=== PATIENT | female | born 1970 | race Caucasian/White ===

== ENCOUNTER → 2018-11-16 | Outpatient (CLI) | payer BC ==
--- NOTE | 2018-11-16 12:13 | KCIC ---
Bilateral digital screening mammograms: Reason for examination: Routine screening. Comparison is made to previous study dated 03/13/2016. Interpretation was made with the benefit of CAD. The skin and nipples show no abnormalities. No abnormal axillary lymph nodes are seen. The breast parenchyma is heterogeneously dense. (Breast density: Category C.) There is some nodularity to the parenchyma posterior laterally in both breasts. This can be further evaluated with ultrasound. There are no suspicious calcifications or architectural distortion. Impression: Nodularity posterior laterally in both breasts. Recommend further evaluation with ultrasound. Your patient's mammogram demonstrates that she has dense breast tissue (breast density category C or D), which could hide abnormalities, and if she has other risk factors for breast cancer that have been identified, she might benefit from supplemental screening tests that may be suggested by you as her ordering physician. Dense breast tissue, in and of itself, is a relatively common condition. Therefore, this information is not provided to cause undue concern, but rather to raise your awareness and to promote discussion with your patient regarding the presence of other risk factors, in addition to dense breast tissue. Your patient's mammography results will be sent to her. BI-RAD Category 0: Incomplete. Needs additional imaging evaluation. "Our facility is accredited by the [employer] Mammography [employer]." This patient's information has been entered into a reminder system for the patient to be notified with the results of her examination and a target date for the next mammogram. Electronically signed by: Arpita Enrique MD (11/16/2018 12:10 PM) [id number]
== END | disposition home or self-care (01) ==
LOC: KCIC MAMMO 10:38
PROVIDERS: ATTEND Internal Medicine
DX: Z12.31 Encounter for screening mammogram for malignant neoplasm of breast (principal)
CPT/HCPCS: 77067

== ENCOUNTER → 2018-11-30 | Outpatient (CLI) | payer BC ==
--- NOTE | 2018-11-30 14:08 | KCIC ---
Bilateral breast ultrasound: Reason for examination: Nodularity bilaterally on screening mammogram. Comparison is made to mammographic exam dated 11/16/2018. Ultrasound examination was performed bilaterally with attention to the lateral breasts and the axilla. In the right breast, there is focal dense fibroglandular tissue at the 10:00 position. There are no discrete cystic or solid nodules or architectural distortions. No abnormal appearing lymph nodes are seen in the right axilla. In the left breast, there is focal dense fibroglandular tissue posterior laterally. There is also a small hypoechoic nodule at the 1:00 position 3 cm from the nipple which is well-circumscribed and it parallel orientation and measures 6.3 mm in greatest dimension. This likely represents a small fibroadenoma. There is also a small hypoechoic lesion 3 mm in greatest dimension at the 5:00 position 3 cm from the nipple which probably represents a small focus of fibrocystic change. No suspicious lesions are seen. No abnormal appearing lymph nodes are seen in the left axilla. IMPRESSION: Dense fibroglandular tissue in the breasts bilaterally corresponds to the areas of mammographic concern. 6.3 mm circumscribed nodule probably representing a fibroadenoma at the 1:00 position of the left breast and a small 3 mm fibrocystic type lesion at the 5:00 position of the left breast. Recommend 6 month follow-up ultrasound of the left breast. BI-RADS Category 3: Probably Benign. "Our facility is accredited by the [employer] Mammography [employer]." This patient's information has been entered into a reminder system for the patient to be notified with the results of her examination and a target date for the next mammogram. Electronically signed by: Arpita Enrique MD (11/30/2018 2:05 PM) [facility]
== END | disposition home or self-care (01) ==
LOC: KCIC US 13:17
PROVIDERS: ATTEND Internal Medicine
DX: N64.89 Other specified disorders of breast (principal); N63.21 Unspecified lump in the left breast, upper outer quadrant; N63.22 Unspecified lump in the left breast, upper inner quadrant
CPT/HCPCS: 76641

== ENCOUNTER → 2019-07-09 | Outpatient (CLI) | payer BC ==
--- NOTE | 2019-07-09 10:00 | KCIC ---
Left breast ultrasound: Reason for examination: Follow-up nodules. Comparison is made to previous study dated 11/30/2018. Left whole breast ultrasound including evaluation of all 4 quadrants and the retroareolar and axillary regions of the left breast was performed. At the 1:00 position 3 cm from the nipple, there continues to be a small hypoechoic fibrocystic type lesion measuring 6 mm in greatest dimension which is stable. At the 5:00 position 3 cm from the nipple there continues to be a small 2.9 mm hypoechoic fibrocystic type nodule which appears to be stable. No other cystic or solid lesions are seen. No abnormal appearing lymph nodes are seen in the axilla. IMPRESSION: Fibrocystic nodules at the 1:00 and 5:00 positions are stable. No suspicious abnormalities are seen. Recommend ultrasound follow-up in 6 months which can be performed at the time of bilateral mammograms. BI-RADS Category 3: Probably Benign. "Our facility is accredited by the [employer] Mammography [employer]." This patient's information has been entered into a reminder system for the patient to be notified with the results of her examination and a target date for the next mammogram. Electronically signed by: Arpita Enrique MD (07/09/2019 9:58 AM) [id number]
== END | disposition home or self-care (01) ==
LOC: KCIC US 07:59
PROVIDERS: ATTEND Internal Medicine
DX: N60.12 Diffuse cystic mastopathy of left breast (principal)
CPT/HCPCS: 76641

== ENCOUNTER → 2020-08-10 | Outpatient (CLI) | payer BC ==
--- NOTE | 2020-08-10 17:18 | RAD ---
Examination: 1. Bilateral digital diagnostic mammogram 2. Limited left breast ultrasound. INDICATION: 50-year-old woman due for bilateral mammographic screening presents for follow-up of prob ably benign nodules in the left breast. COMPARISON: Limited left breast ultrasound of 07/09/2019 and bilateral breast ultrasound of 11/30/2018. Bilateral screening mammogram of 11/16/2018 also reviewed. TECHNIQUE: CC and MLO views of both breasts were obtained with 2-D technique and a full field left ML view was also obtained. Images reviewed with computer-aided detection. Targeted ultrasound of the la teral left breast was also performed. FINDINGS: Heterogeneously dense breast parenchyma. Stable nodular parenchymal pattern compatible benign cystic change. Targeted ultrasound of the lateral left breast reveals a 3 mm parallel orientation cyst with adjacent calcification at the 5:00 position 3 cm from the nipple similar to prior. Likewise no significant in terval change in a 5 mm coronal orientation hypoechoic nodule with circumscribed margins of the 1:00 position 3 cm from the nipple. Sonographic survey of the left axilla reveals no adenopathy. IMPRESSION: Benign findings on left diagnostic mammogram and targeted breast ultrasound. BI-RADS Category 2 Benign findings Recommend return to routine screening next due in one year. Given her breast tissue density, 3-D mammography would be of particular benefit. Patient entered into a reminder system with targeted due date for next mammogram. Electronically signed by: Radha Bran MD (08/10/2020 5:16 PM) [id number]
== END ==
LOC: US 13:17
PROVIDERS: ATTEND Internal Medicine
DX: R92.8 Other abnormal and inconclusive findings on diagnostic imaging of breast (principal)
CPT/HCPCS: 76641; 77066